=== PATIENT | female | born 1935 | race Caucasian/White ===

== ENCOUNTER 2024-08-28 19:27 | Emergency (ER) | payer MEDICARE, SELFPAY ==
[2024-08-28 19:30] VITALS: BP 102/65
[2024-08-28 20:26] VITALS: BMI 21.8
[2024-08-28 22:47] VITALS: BP 107/68
--- NOTE | 2024-08-28 22:48 | ED.MUSCINJ ---
HPI-Injury
General
Chief Complaint: Fall
Source: patient and family
Exam Limitations: none
Time Seen by Provider: 08/28/24 21:36
Nursing documentation reviewed up to this point in time: agreed with
Past History
Past History
ED Past Medical History: Arrthythmia, HTN and Hypercholesterolemia
Review of Systems
Review of Systems
Allergies reviewed?: Yes
All Other Systems: ROS reviewed and negative except as documented in HPI and ROS
Constitutional: Reports no symptoms
EENT: Reports no symptoms
Respiratory: Reports no symptoms
Cardiac: Reports no symptoms
ABD/GI: Reports no symptoms
: Reports no symptoms
Musculoskeletal: Reports joint pain (pain to left wrist, left shoulder)
Skin: Reports no symptoms
Neurological: Reports no symptoms
Psychiatric: Reports no symptoms
Musculoskeletal Injury Exam
Musculoskeletal Injury Exam
Left Wrist:
Pain with Movement?: Moderate
Tender to palpation?: Moderate
Soft tissue swelling?: Moderate
External deformity and angulation?: None
Joint effusion?: None
Contusion?: Moderate
Hematoma-local bleeding into tissue?: Moderate
Strain- Sprain- Tear (Connective tissue injury)?: Moderate
Crepitus with movement?: No
Joint instability?: No
Malalignment/deformity?: No
Range of motion: Limited
Distal skin color and temperature: normal-warm & good color
Capillary Refill: normal
Normal distal neurovascular exam?: Yes
Peripheral Pulses: radial (left): 3+
Left Shoulder:
Pain with Movement?: Moderate
Tender to palpation?: Moderate
Soft tissue swelling?: None
External deformity and angulation?: None
Joint effusion?: None
Contusion?: Moderate
Hematoma-local bleeding into tissue?: None
Strain- Sprain- Tear (Connective tissue injury)?: None
Crepitus with movement?: No
Joint instability?: No
Malalignment/deformity?: No
Range of motion: Full
Distal skin color and temperature: normal-warm & good color
Capillary Refill: normal
Normal distal neurovascular exam?: Yes
Phy Exam
General Physical Exam
General Presentation: well appearing and mild distress
General age: appears stated age
General Skin: warm and dry
General Habitus: normal
General Mental: alert
Musculoskeletal Exam
Musculoskeletal Exam: neuro vasc intact
Skin Exam
Skin Exam: normal color, warm/dry and no rash
Psychiatric Exam
Psychiatric Exam: normal mood/affect
Injury Course
Orders/Labs/Results
Orders:
Orders
08/28/24 19:35
Wrist, Left 3 Views CR [CR Wrist - Left Min 3 Views] Urgent
Comment:
Reason For Exam: pain, injury
08/28/24 19:36
Shoulder, Left, Trauma CR [CR Shoulder, Trauma - Left] Urgent
Comment:
Reason For Exam: pain, injury
08/28/24 21:46
CT Head W/o Iv Contrast Urgent
Comment:
Reason For Exam: trauma
08/28/24 22:13
Sling Left-Treatment ONCE
[place] Left-Treatment ONCE
08/28/24 22:48
Hydrocodone 5/APAP 325 [Lamont 5/325] 1 tablet PO NOW STA
*Pulse Oximetry
SaO2: 98
Oxygen Mode of Delivery: Room air
ED Attending Note
-
Portions of this chart may have been created with voice recognition software.� Occasional wrong word or��sound alike� substitutions may have occurred due to the inherent limitations of voice recognition software.
Discharge Plan
Departure
Patient Disposition: Home (Routine Discharge)
Date of Disposition: 08/28/24
Time of Disposition: 22:44
Patient with high blood pressure during this ER visit?: No
Condition: Good
Covid-19: Not Applicable
Discharge Problem:
Fracture of wrist, Head injury, Contusion of left shoulder
Instructions: Head Injury in Adults (DC), Contusion (DC), Preventing falls in adults, Cold therapy for pain, Splint care - ED discharge instructions, Wrist Fracture
Prescriptions:
New
oxycodone 5 mg capsule
5 mg PO Q4H PRN (Reason: Pain) Qty: 12 0RF
Referrals:
Fernando Dee, [Family Provider, Family Practice]
Malik Crawford MD [Active, Orthopedics] - Call in 1-3 days for appt
Interventions
Interventions:
*Risk Screen - Suicide Last Done: 08/28/24 20:31
*General Assessment Last Done: 08/28/24 20:27
*Neglect/Abuse Screening Last Done: 08/28/24 20:31
*ED- Fall Risk Assessment Last Done: 08/28/24 20:27
*ED COVID-19 Vaccine History Last Done: 08/28/24 20:27
ED-Musculoskeletal Assessment Last Done: 08/28/24 20:29
ED- Neurological Assessment Last Done: 08/28/24 20:29
ED-Skin Assessment Last Done: 08/28/24 20:29
Discharge Date and Time
Print Language: ROMANSH
[2024-08-28] MEDS: NORCO 5/325 1 TABLET PO (22:52)
== END 2024-08-28 22:59 | disposition home or self-care (01) ==
LOC: EMR 19:27
PROVIDERS: EMERGENCY PHYSICIAN Emergency Medicine; FAMILY PHYSICIAN Family Medicine
DX: S09.90XA Unspecified injury of head, initial encounter (principal); S40.012A Contusion of left shoulder, initial encounter; S52.502A Unspecified fracture of the lower end of left radius, initial encounter for closed fracture; S52.612A Displaced fracture of left ulna styloid process, initial encounter for closed fracture; W19.XXXA Unspecified fall, initial encounter
CPT/HCPCS: 99284; 70450; 73030; 73110